=== PATIENT | male | born 2000 | race Caucasian/White ===

== ENCOUNTER 2019-11-11 05:17 | Emergency (ER) | payer OTHER, BC, SELFPAY ==
[2019-11-11 05:21] VITALS: BP 127/78; PULSE 109; RESP 16; TEMP 37; O2SAT 95; BMI 25.1
--- NOTE | 2019-11-11 05:47 | W.ED.NAVMDI ---
HPI - Nausea/Vomiting/Diarrhea General: Chief complaint: Nausea/Vomiting/Diarrhea Stated complaint: nausea Time Seen by Provider: 11/11/19 05:46 History of Present Illness: HPI Narrative: 18 yo female presents with N/V, denies hematochezia melena hematemesis or coffee-ground emesis. Denies dysuria urgency or frequency. No fevers. Associated nausea: Yes Associated symtoms: Reports nausea; Denies bloating, chest pain, dysuria, fatigue or malaise Review of Systems Const: Denies: fever, chills, body aches, change in appetite, fatigue or malaise ENMT: Denies: throat pain, ear pain, nasal discharge or nasal congestion Card: Denies: chest pain, edema, shortness of breath on exertion or shortness of breath when lying down Resp: Denies: shortness of breath, productive cough or non-productive cough GI: Reports: nausea and vomiting; Denies: abdominal pain, vomiting blood, coffee grounds in vomit, diarrhea, constipation, bloating, blood in stool or black tarry stool : Denies: flank pain, painful urination, urinary frequency or urinary urgency Skin/Breast: Denies: rash or itching PFSH ED PFSH: Social History Smoking and tobacco status: never smoked Physical Exam Const: COMMON NORMALS: no apparent distress GENERAL APPEARANCE: cooperative and comfortable ORIENTATION/CONSCIOUSNESS: Yes awake, Yes oriented to person, Yes oriented to place and Yes oriented to time HENMT: COMMON NORMALS: normocephalic, head/scalp atraumatic, hearing grossly normal bilaterally, external ears normal, EAC's normal, TM's normal bilaterally, nasal mucous membranes and turbinates normal, moist oral mucous membranes and oropharynx normal HEAD & SCALP: normocephalic and atraumatic NOSE: nasal mucous membranes and turbinates normal EXTERNAL EAR: Yes external ears normal EXTERNAL AUDITORY CANAL: EAC's normal TYMPANIC MEMBRANE: TM's normal bilaterally Eye: COMMON NORMALS: PERRL, EOMs intact bilaterally, conjunctivae normal and no scleral icterus CONJUNCTIVA: Yes conjunctivae normal PUPIL: Yes PERRL Neck/C-Spine: COMMON NORMALS: full ROM, no lymphadenopathy, supple and no JVD Lymph: LYMPHATIC: no lymphadenopathy noted and no lymphedema noted Resp: COMMON NORMALS: normal respiratory effort, no retractions, no use of accessory muscles and clear to auscultation bilaterally AUSCULTATION: clear to auscultation bilaterally Cardio: COMMON NORMALS: no JVD, regular rate, regular rhythm and no murmurs RATE: regular rate RHYTHM: regular rhythm GI: COMMON NORMALS: soft to palpation and no hepatosplenomegaly AUSCULTATION: Yes normoactive bowel sounds PALPATION: Yes soft, No tender, No guarding and Yes no hepatosplenomegaly Extremity: COMMON NORMALS: normal to inspection, normal capillary refill, no clubbing, cyanosis or edema, no calf tenderness and no pedal edema Neuro: SENSORIUM/ORIENTATION: Yes oriented to person, Yes oriented to place and Yes oriented to time Skin: COMMON NORMALS: no rashes or lesions noted GENERAL SKIN EXAM: no rashes or lesions noted Course ED course: Influenza is positive remainder the labs are essentially normal mild prerenal dehydration. We will go ahead and give her IV fluids discharge home gave her Zofran to use PRN discussed Tamiflu and patient decided against. Return if has worsening problems. Vital Signs: Vital signs: Vital Signs Temperature 98.6 F 11/11/19 05:21 Pulse Rate 109 H 11/11/19 05:21 Respiratory Rate 16 11/11/19 08:18 Blood Pressure 127/78 11/11/19 05:21 Pulse Oximetry 95 11/11/19 05:21 MDM - Nausea/Vomiting/Diarrhea Lab Data: Labs: Lab Results 11/11/19 11/11/19 11/11/19 Range/Units 05:41 05:41 06:08 WBC 8.6 (4.5-13.0) 10^3/ uL RBC 5.52 H (4.1-5.3) 10^6/u L Hgb 16.0 (11.7-16.6) g/dL Hct 47.9 (42.0-52.0) % MCV 86.8 (80-94) fL MCH 29.0 (28.0-34.0) pg MCHC 33.4 (30.0-36.0) g/dL RDW 12.2 (12.1-15.1) % Plt Count 229 (130-400) 10^3/c mm MPV 9.6 (7.4-10.4) fL Neut % (Auto) 84.6 % Lymph % (Auto) 7.8 % [place] % (Auto) 6.2 % Eos % (Auto) 1.0 % Baso % (Auto) 0.1 % Neut # (Auto) 7.3 (1.8-8.0) 10^3/u L Lymph # (Auto) 0.7 L (1.5-6.5) 10^3/u L [place] # (Auto) 0.5 (0.2-0.9) 10^3/u L Eos # (Auto) 0.1 (0.0-0.8) 10^3/u L Baso # (Auto) 0.0 (0.0-0.1) 10^3/u L Nucleated RBC % (a uto) 0 % Nucleated RBCs # 0.0 /100WBC Sodium 139 (136-145) mmol/L Potassium 4.8 (3.5-5.1) mmol/L Chloride 102 (98-107) mmol/L Carbon Dioxide 26 (22-29) mmol/L Anion Gap 15.8 (5-19) BUN 21 H (6-20) mg/dL Creatinine 1.0 (0.7-1.2) mg/dL GFR Calculation 95.3 (90-130) mL/min Glucose 136 H (65-115) mg/dL Calculated Osmolal ity 287 (285-295) mOsm/k g Calcium 9.4 (8.5-10.5) mg/dL Total Bilirubin 0.9 (0.15-1.2) mg/dL AST 25 (0-40) U/L ALT 42 H (0-41) U/L Alkaline Phosphata se 76 (40-130) IU/L Total Protein 7.5 (6.6-8.7) g/dL Albumin 4.6 (3.5-5.2) g/dL Globulin 2.9 (1.3-4.6) g/dL Lipase 25 (13-60) U/L Urine Color Yellow (Yellow) Urine Appearance Clear (CLEAR) Urine pH 6 (5-7) Ur Specific Gravit y 1.010 (1.005-1.030) Urine Protein Neg (Negative) Urine Glucose (UA) Norm (Normal) Urine Ketones 1+ H (Negative) Urine Blood Neg (Negative) Urine Nitrate Negative (Negative) Urine Bilirubin Neg (NEGATIVE) Urine Urobilinogen 1 H (Negative) mg/dL Ur Leukocyte Gloria ase Negative (Negative) Discharge Plan Discharge Patient Disposition: Home, Self-Care Clinical Impression: Influenza, Dehydration Condition: Stable Prescriptions: New Zofran 4 mg tablet 4 mg PO Q6H PRN (Reason: nausea and vomiting) Qty: 20 RF: 0 Discharge Orders: Discharge Order (Routine); Ordered 11/11/19 Ordered By: Trae Hart Referrals: Rodri Vasquez, SPREADING MACHINE OPERATOR [Family Provider] - Discharge Diet: Clear Liquid Discharge Activity: Increase activity as tolerated Discharge Date/Time: 11/11/19 08:18 Coding Level of Care Code ED Customer Service Manager for Payal Guzman
[2019-11-11 05:54] LABS: Basophils % 0.1 %; Eosinophils # 0.1 10^3/uL (0.0-0.8); Hematocrit 47.9 % (42.0-52.0); Lymphocytes # 0.7 10^3/uL (1.5-6.5); Lymphocytes % 7.8 %; Mean Corpuscular HGB Conc 33.4 g/dL (30.0-36.0); Mean Corpuscular Volume 86.8 fL (80-94); Mean Platelet Volume 9.6 fL (7.4-10.4); Monocytes # 0.5 10^3/uL (0.2-0.9); Monocytes % 6.2 %; Neutrophils # 7.3 10^3/uL (1.8-8.0); Neutrophils % 84.6 %; Nucleated Red Blood Cells % 0 %; Platelet Count 229 10^3/cmm (130-400); Red Blood Count 5.52 10^6/uL (4.1-5.3); Red Cell Distribution Width 12.2 % (12.1-15.1); White Blood Count 8.6 10^3/uL (4.5-13.0)
[2019-11-11] MEDS: ondansetron 2 mg/ML SDV 2 mL 4 MG IVP ×2 (05:58→07:52)
[2019-11-11] MEDS: sodium chloride 0.9% 1,000 ML 999 ML IV ×2 (05:58→07:51)
[2019-11-11 06:10] LABS: Alanine Aminotransferase 42 U/L (0-41); Albumin Level 4.6 g/dL (3.5-5.2); Alkaline Phosphatase 76 IU/L (40-130); Anion Gap 15.8 (5-19); Aspartate Amino Transferase 25 U/L (0-40); Blood Urea Nitrogen 21 mg/dL (6-20); Calcium 9.4 mg/dL (8.5-10.5); Carbon Dioxide 26 mmol/L (22-29); Chloride 102 mmol/L (98-107); Creatinine Clr Calc Pharmacy 129.7313; Globulin 2.9 g/dL (1.3-4.6); Glomerular Filtration Rate 95.3 mL/min (90-130); Glucose 136 mg/dL (65-115); Lipase 25 U/L (13-60); Osmolality Calculated 287 mOsm/kg (285-295); Potassium 4.8 mmol/L (3.5-5.1); Sodium 139 mmol/L (136-145); Total Bilirubin 0.9 mg/dL (0.15-1.2); Total Protein 7.5 g/dL (6.6-8.7)
[2019-11-11 06:15] LABS: Add Urine Microscopic? NO
[2019-11-11 06:31] LABS: Urine Appearance Clear (CLEAR); Urine Color Yellow (Yellow); pH Urine 6 (5-7)
[2019-11-11 06:32] LABS: Bilirubin Urine Neg (NEGATIVE); Blood Urine Neg (Negative); Glucose Urine UA Norm (Normal); Ketones Urine 1+ (Negative); Leukocyte Esterase Urine Negative (Negative); Nitrate Urine Negative (Negative); Protein Urine Neg (Negative); Urobilinogen Urine 1 mg/dL (Negative)
[2019-11-11 07:00] VITALS: RESP 17
[2019-11-11 08:00] VITALS: RESP 16
[2019-11-11 08:18] VITALS: RESP 16
== END 2019-11-11 08:18 | disposition home or self-care (01) ==
PROVIDERS: Emergency Medicine; Emergency Provider Family Medicine; Family Provider Nurse Practitioner Family
DX: J11.1 Influenza due to unidentified influenza virus with other respiratory manifestations (principal); E86.0 Dehydration
CPT/HCPCS: 12345; 80053; 81003; 83690; 85025; 96360; 96361; 96365; 96366; 96374; 96375; 99283; A9270; J2405; J7030

== ENCOUNTER 2021-10-16 13:08 | Emergency (ER) | payer OTHER, SELFPAY ==
[2021-10-16 14:28] VITALS: BP 100/69; PULSE 76; RESP 14; TEMP 36.8; O2SAT 98; BMI 27.8
[2021-10-16] MEDS: rabies vaccine 2.5 unit SDV IM (16:09)
--- NOTE | 2021-10-16 16:17 | W.ED.GENADLT ---
HPI - General Adult General: Chief complaint: General Medical Stated complaint: Wants a rabies shot Time Seen by Provider: 10/16/21 15:59 History of Present Illness: Patient is a 20-year-old male comes to the ED with possible exposure to rabies. 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 They ended up having to put the dogs down and some blood from one of the dogs got in patient's eye. They had no vaccination history on dogs. He denies any bites or any other injuries. He has no other symptoms. Associated symptoms: Deny chest pain, dyspnea, headache(s), nausea, rash, palpitations or vomiting Review of Systems Const: Denies: fever(s), chills or fatigue Eyes: Denies: change in vision or eye discomfort ENMT: Denies: throat pain, odynophagia, nasal discharge or nasal congestion Card: Denies: chest pain, palpitations, edema, swelling of feet/ankles, dyspnea on exertion or orthopnea Resp: Denies: dyspnea, productive cough or non-productive cough GI: Denies: abdominal pain, nausea, vomiting, diarrhea, constipation or hematochezia : Denies: flank pain, difficulty urinating, dysuria or hematuria Musc: Denies: neck pain, back pain or extremity swelling Skin/Breast: Denies: rash or new lesions Neuro: Denies: headache(s), numbness in extremities or weakness in extremities [facility] ED PFSH: Medical History No pertinent family history Surgical History No pertinent past surgical history Social History Smoking and tobacco status: never smoked Physical Exam Const: COMMON NORMALS: no acute distress, patient oriented x3, healthy appearing and alert GENERAL APPEARANCE: cooperative and comfortable HENMT: COMMON NORMALS: normocephalic HEAD & SCALP: normocephalic MOUTH: Normal oral and palatal mucosa present THROAT: posterior oropharynx normal and uvula midline Neck/C-Spine: COMMON NORMALS: supple GENERAL: Yes normal visual inspection Resp: COMMON NORMALS: normal respiratory effort, No retractions, No use of accessory muscles and clear to auscultation bilaterally AUSCULTATION: clear to auscultation bilaterally Cardio: COMMON NORMALS: regular rate, regular rhythm, S1 normal heart sound present, S2 normal heart sound present, No gallops present (Cardio), No clicks present (Cardio), No murmurs present (Cardio) and Peripheral pulses 2+ throughout RATE: regular rate RHYTHM: regular rhythm HEART SOUNDS: S1 normal heart sound present and S2 normal heart sound present PERIPHERAL PULSES: Peripheral pulses 2+ throughout GI: COMMON NORMALS: Normal to inspection, nondistended, normoactive bowel sounds present, Soft to palpation, non-tender and no masses PALPATION: Yes Soft to palpation : COMMON NORMALS: Yes no CVA tenderness BLADDER/KIDNEY EXAM: Yes no CVA tenderness Back/Pelvis: COMMON NORMALS: no CVA tenderness Extremity: COMMON NORMALS: normal to inspection Neuro: COMMON NORMALS: patient oriented x3 and moves all extremities SENSORIUM/ORIENTATION: Yes alert Skin: COMMON NORMALS: no rashes or lesions noted GENERAL SKIN EXAM: no rashes or lesions noted and dry skin Course Vital Signs: Vital signs: Vital Signs Temperature 98.2 F 10/16/21 14:28 Pulse Rate 76 10/16/21 14:28 Respiratory Rate 14 10/16/21 14:28 Blood Pressure 100/69 10/16/21 14:28 Pulse Oximetry 98 10/16/21 14:28 MDM - General Adult Medical Decision Making Patient is a 20-year-old male comes to the ED in need of postexposure prophylaxis for rabies. 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 No vaccination history on dogs. Denies any bite starr or any other injuries from dogs. Vital stable. Patient appears in no acute distress or pain. The rest of exam was benign. Patient was given rabies immune globulin and rabies vaccine here in the ED. He was instructed when to return to the ED to get the rest of his rabies vaccination series. Patient understood and agreed with plan. Discharge Plan Discharge Patient Disposition: Home Clinical Impression: Need for post exposure prophylaxis for rabies Condition: Stable Prescriptions: No Action Zofran 4 mg tablet 4 mg PO Q6H PRN (Reason: nausea and vomiting) Qty: 20 0RF Discharge Orders: Discharge ED (Routine); Ordered 10/16/21 Ordered By: Adrian Marianne Discharge Diet: Regular Discharge Activity: Resume usual activity Patient Instructions: Rabies Vaccine (By injection), Rabies Immune Globulin (By injection), Rabies (ED) Activity Restrictions/Additional Instructions: Follow-up with medical provider as directed. return to the ED for rabies vaccination dose on day 3 (10/19), 7 (10/23) and 14 (10/30). Return to the ER or your medical provider if condition worsens. Please read and understand discharge instructions. If any questions, please ask. Coding Level of Care Code ED Fixing Carpenter for Payal Fwd Exam Comprehensive
== END 2021-10-16 16:49 | disposition home or self-care (01) ==
PROVIDERS: Emergency Provider Physician Assistant
DX: Z20.3 Contact with and (suspected) exposure to rabies (principal); Z29.14 Encounter for prophylactic rabies immune globulin; Z23 Encounter for immunization; Y99.0 Civilian activity done for income or pay
CPT/HCPCS: 90375; 90471; 90675; 96372; 99283

== ENCOUNTER 2022-04-02 21:08 | Emergency (ER) | payer OTHER, BC, SELFPAY ==
[2022-04-02 21:23] VITALS: BP 137/85; PULSE 101; RESP 22; TEMP 36.3; O2SAT 97; BMI 27.8
--- NOTE | 2022-04-02 21:29 | CTR_ITS ---
PROCEDURE INFORMATION: Exam: CT Abdomen And Pelvis With Contrast Exam date and time: 04/02/2022 10:48 PM Age: 21 years old Clinical indication: Abdominal pain; Prior surgery; Surgery type: Gb; Patient HX: C/O severe periumbilical pain. ; Additional info: Abd pain TECHNIQUE: Imaging protocol: Computed tomography of the abdomen and pelvis with contrast. Radiation optimization: All CT scans at this facility use at least one of these dose optimization techniques: automated exposure control; mA and/or kV adjustment per patient size (includes targeted exams where dose is matched to clinical indication); or iterative reconstruction. Contrast material: OMNI 350; Contrast volume: 80 ml; Contrast route: INTRAVENOUS (IV); COMPARISON: CR (ABDOMEN, ) 04/02/2022 9:56 PM RADIATION DOSE METRICS: Total DLP (mGy-cm): 577.47 FINDINGS: Liver: Normal. No mass. Gallbladder and bile ducts: Cholecystectomy. The bile ducts are normal. Pancreas: Normal. No ductal dilation. Spleen: Normal. No splenomegaly. Adrenal glands: Normal. No mass. Kidneys and ureters: Hypodensity in the left kidney is too small to characterize but is most likely a cyst. No follow-up imaging is recommended. The kidneys are otherwise unremarkable. No calculus or hydronephrosis. Stomach and bowel: Mildly prominent fluid-filled loops of small bowel in the mid and lower abdomen measure up to 2.7 cm. No visible wall thickening. The stomach and colon are unremarkable. Appendix: The appendix is visualized and is normal. Intraperitoneal space: Unremarkable. No free air. No significant fluid collection. Vasculature: Unremarkable. No abdominal aortic aneurysm. Lymph nodes: Prominent mesenteric lymph nodes are most likely reactive. Urinary bladder: Unremarkable as visualized. Reproductive: Unremarkable as visualized. Bones/joints: Unremarkable. No acute fracture. Soft tissues: Unremarkable. CT/CT abdomen pelvis w con* [id number] IMPRESSION: 1. Mesenteric adenitis. 2. Mildly prominent fluid-filled loops of small bowel could represent mild enteritis or ileus. COMMENTS: Consistent with the [employer]'s Incidental Findings Committee white paper (J Am Alpesh Radiol 2018): Any incidental renal lesion less than 1 cm or classified as too small to characterize, or any incidental cystic renal lesion characterized as simple-appearing, is likely benign. No follow-up imaging is recommended for these lesions per consensus recommendations based on imaging criteria.
--- NOTE | 2022-04-02 21:44 | W.ED.GENADLT ---
Documented by User: Adeel Corral MD 04/06/22 11:55 HPI - General Adult General: Chief complaint: Abdominal Pain Stated complaint: ABD PAIN Time Seen by Provider: 04/02/22 21:25 History of Present Illness: Patient is a 21-year-old male with history of cholecystectomy presenting to the emergency room for evaluation of diffuse abdominal pain since 430 this afternoon. Patient tells me that he was at home and suddenly noticed bloating and this the pain has significantly worsened since then. Patient denies any nausea/vomiting, diarrhea, fever/chills, cough, runny nose sore throat. Patient denies any melena or hematochezia. No complaints at this time. No prior history of renal colic. Patient denies any chest pain, short of breath, generalized weakness cough or sore throat Onset:4:30pm Duration:ongoing Location:home Severity:moderate Associated symptoms: Deny chest pain, dyspnea, nausea, rash, palpitations or vomiting Review of Systems Const: Denies: fever(s) or chills Eyes: Denies: change in vision ENMT: Denies: mouth pain Card: Denies: chest pain or palpitations Resp: Denies: dyspnea or non-productive cough GI: Reports: abdominal pain (+diffuse abd pain); Denies: nausea, vomiting or diarrhea : Denies: dysuria Musc: Denies: extremity pain Skin/Breast: Denies: rash or new lesions Neuro: Denies: weakness in extremities Psych: Reports: other (Normal mood) Kyle/Lymph: Denies: easy bruising PFS ED PFSH: Surgical History No pertinent past surgical history S/P cholecystectomy Social History Smoking and tobacco status: never smoked Physical Exam Const: COMMON NORMALS: alert HENMT: COMMON NORMALS: atraumatic HEAD & SCALP: atraumatic MOUTH: moist mucous membranes not abnormal Eye: COMMON NORMALS: EOMs intact bilaterally and conjunctivae normal CONJUNCTIVA: Yes conjunctivae normal Neck/C-Spine: COMMON NORMALS: full ROM and supple Resp: COMMON NORMALS: normal respiratory effort and clear to auscultation bilaterally AUSCULTATION: clear to auscultation bilaterally Cardio: COMMON NORMALS: regular rate RATE: regular rate GI: COMMON NORMALS: Soft to palpation PALPATION: Yes Soft to palpation OTHER: +Moderate diffuse abd TTP. NO guarding rebound, guarding, rigidity. No CVA tenderness to percussion. Neg Gómez/Neg McBurney's point tenderness, no suprabupic tenderness to palpation. Extremity: COMMON NORMALS: full ROM Neuro: SENSORIUM/ORIENTATION: Yes alert MOTOR EXAM: No Abnormal motor strength present and Other motor observations present (no focal motor deficits) Psych: COMMON NORMALS: speech normal SPEECH: Yes normal speech MOOD & AFFECT: Yes euthymic mood Course Vital Signs: Vital signs: Vital Signs Temperature 97.3 F L 04/02/22 21:23 Pulse Rate 94 04/03/22 00:22 Respiratory Rate 18 04/03/22 00:22 Blood Pressure 141/84 04/03/22 00:22 Pulse Oximetry 94 04/03/22 00:22 Oxygen Delivery Me thod 04/02/22 23:05 MDM - General Adult Medical Decision Making 21-year-old male with history of cholecystectomy presenting to the emergency room with diffuse abdominal pain since 430 this afternoon. On physical exam, patient appears to be in moderate distress with diffuse tenderness palpation. No guarding or rebound tenderness. Initially in triage, patient was noted to be tachycardic, however heart rate improved without reassessment. Lab Data : 04/02/22 21:36 04/02/22 21:36 Radiology Impressions Abdomen/Pelvis CT 04/02/22 21:29 IMPRESSION: 1. Mesenteric adenitis. 2. Mildly prominent fluid-filled loops of small bowel could represent mild enteritis or ileus. COMMENTS: Consistent with the [employer]'s Incidental Findings Committee white paper (J Am Alpesh Radiol 2018): Any incidental renal lesion less than 1 cm or classified as too small to characterize, or any incidental cystic renal lesion characterized as simple-appearing, is likely benign. No follow-up imaging is recommended for these lesions per consensus recommendations based on imaging criteria. Chest X-Ray 04/02/22 21:53 Impression: Negative chest. KUB X-Ray 04/02/22 21:53 IMPRESSION: 1. Nonobstructive bowel gas pattern. Mild gaseous prominence of the small bowel could represent ileus or enteritis. Laboratory Results WBC 9.9 10^3/uL (4.0-10.0) 04/02/22 21:36 RBC 5.26 10^6/uL (4.1-5.3) 04/02/22 21:36 Hgb 15.5 g/dL (11.7-16.6) 04/02/22 21:36 Hct 44.5 % (42.0-52.0) 04/02/22 21:36 MCV 84.6 fl (80-94) 04/02/22 21:36 MCH 29.5 pg (28.0-34.0) 04/02/22 21:36 MCHC 34.8 g/dL (30.0-36.0) 04/02/22 21:36 RDW 12.1 % (12.1-15.1) 04/02/22 21:36 Plt Count 271 10^3/cmm (130-400) 04/02/22 21:36 MPV 9.7 fL (7.4-10.4) 04/02/22 21:36 Neut % (Auto) 75.6 % 04/02/22 21:36 Lymph % (Auto) 15.0 % 04/02/22 21:36 [place] % (Auto) 7.1 % 04/02/22 21:36 Eos % (Auto) 1.5 % 04/02/22 21:36 Baso % (Auto) 0.4 % 04/02/22 21:36 Neut # (Auto) 7.51 10^3/uL (1.8-7.7) 04/02/22 21:36 Lymph # (Auto) 1.5 10^3/uL (0.8-4.8) 04/02/22 21:36 [place] # (Auto) 0.7 10^3/uL (0.2-0.9) 04/02/22 21:36 Eos # (Auto) 0.2 10^3/uL (0.0-0.8) 04/02/22 21:36 Baso # (Auto) 0.0 10^3/uL (0.0-0.1) 04/02/22 21:36 Nucleated RBC % (auto) 0 % 04/02/22 21:36 Nucleated RBCs # 0.0 /100WBC 04/02/22 21:36 Sodium 139 mmol/L (136-145) 04/02/22 21:36 Potassium 4.0 mmol/L (3.5-5.1) 04/02/22 21:36 Chloride 102 mmol/L (98-107) 04/02/22 21:36 Carbon Dioxide 25 mmol/L (22-29) 04/02/22 21:36 Anion Gap 16.0 (5-19) 04/02/22 21:36 BUN 15 mg/dL (6-20) 04/02/22 21:36 Creatinine 1.1 mg/dL (0.7-1.2) 04/02/22 21:36 GFR Calculation 83.0 mL/min (90-130) L 04/02/22 21:36 Glucose 111 mg/dL (65-115) 04/02/22 21:36 Calculated Osmolality 290 mOsm/kg (285-295) 04/02/22 21:36 Lactate 2.1 mmol/L (0.5-2.2) 04/02/22 21:36 Calcium 9.4 mg/dL (8.5-10.5) 04/02/22 21:36 Total Bilirubin 0.5 mg/dL (0.15-1.2) 04/02/22 21:36 AST 18 U/L (0-40) 04/02/22 21:36 ALT 23 U/L (0-41) 04/02/22 21:36 Alkaline Phosphatase 69 IU/L (40-130) 04/02/22 21:36 Total Protein 6.9 g/dL (6.6-8.7) 04/02/22 21:36 Albumin 4.4 g/dL (3.5-5.2) 04/02/22 21:36 Globulin 2.5 g/dL (1.3-4.6) 04/02/22 21:36 Lipase 29 U/L (13-60) 04/02/22 21:36 Urine Color Yellow (Yellow) 04/02/22 22:02 Urine Appearance Clear (CLEAR) 04/02/22 22:02 Urine pH 7 (5-7) 04/02/22 22:02 Ur Specific [place] 1.010 (1.005-1.030) 04/02/22 22:02 Urine Protein Neg (Negative) 04/02/22 22:02 Urine Glucose (UA) Norm (Normal) 04/02/22 22:02 Urine Ketones 1+ (Negative) H 04/02/22 22:02 Urine Blood Neg (Negative) 04/02/22 22:02 Urine Nitrate Negative (Negative) 04/02/22 22:02 Urine Bilirubin Neg (Negative) 04/02/22 22:02 Urine Urobilinogen Norm mg/dL (Negative) 04/02/22 22:02 Ur Leukocyte Esterase Negative (Negative) 04/02/22 22:02 Discharge Plan Discharge Patient Disposition: Home Clinical Impression: Abdominal pain, Mesenteric adenitis Condition: Stable Prescriptions: New hydrocodone-acetaminophen 5-325 mg tablet 1 tab PO Q6H PRN (Reason: pain) Qty: 14 0RF ondansetron 4 mg tablet,disintegrating 4 mg PO Q6H PRN (Reason: nausea and vomiting) Qty: 14 0RF Discharge Orders: Discharge ED (Routine); Ordered 04/03/22 Ordered By: Elva Mtz Discharge Diet: Advance as tolerated Discharge Activity: Resume usual activity Patient Instructions: Abdominal Pain (ED), Opioid Safety Coding Level of Care Code ED Can Closing Machine Operator for Chg Fwd Exam Comprehensive Documented by User: Elva Mtz MD 04/03/22 00:09 HPI - General Adult General: Chief complaint: Abdominal Pain Stated complaint: ABD PAIN Time Seen by Provider: 04/02/22 21:25 [facility] ED PFSH: Surgical History No pertinent past surgical history S/P cholecystectomy Social History Smoking and tobacco status: never smoked Course Vital Signs: Vital signs: Vital Signs Temperature 97.3 F L 04/02/22 21:23 Pulse Rate 94 04/03/22 00:22 Respiratory Rate 18 04/03/22 00:22 Blood Pressure 141/84 04/03/22 00:22 Pulse Oximetry 94 04/03/22 00:22 Oxygen Delivery Me thod 04/02/22 23:05 MDM - General Adult Medical Decision Making 21-year-old male with history of cholecystectomy presenting to the emergency room with diffuse abdominal pain since 430 this afternoon. On physical exam, patient appears to be in moderate distress with diffuse tenderness palpation. No guarding or rebound tenderness. Initially in triage, patient was noted to be tachycardic, however heart rate improved without reassessment. Patient's CT scan here shows mesenteric adenitis no signs appendicitis he feels much improved exam at discharge is benign we will place him on pain meds he is to follow-up with PCP and return if worsening he understands agrees to plan. Lab Data : 04/02/22 21:36 04/02/22 21:36 Radiology Impressions Abdomen/Pelvis CT 04/02/22 21:29 IMPRESSION: 1. Mesenteric adenitis. 2. Mildly prominent fluid-filled loops of small bowel could represent mild enteritis or ileus. COMMENTS: Consistent with the [employer]'s Incidental Findings Committee white paper (J Am Alpesh Radiol 2018): Any incidental renal lesion less than 1 cm or classified as too small to characterize, or any incidental cystic renal lesion characterized as simple-appearing, is likely benign. No follow-up imaging is recommended for these lesions per consensus recommendations based on imaging criteria. Chest X-Ray 04/02/22 21:53 Impression: Negative chest. KUB X-Ray 04/02/22 21:53 IMPRESSION: 1. Nonobstructive bowel gas pattern. Mild gaseous prominence of the small bowel could represent ileus or enteritis. Laboratory Results WBC 9.9 10^3/uL (4.0-10.0) 04/02/22 21:36 RBC 5.26 10^6/uL (4.1-5.3) 04/02/22 21:36 Hgb 15.5 g/dL (11.7-16.6) 04/02/22 21:36 Hct 44.5 % (42.0-52.0) 04/02/22 21:36 MCV 84.6 fl (80-94) 04/02/22 21:36 MCH 29.5 pg (28.0-34.0) 04/02/22 21:36 MCHC 34.8 g/dL (30.0-36.0) 04/02/22 21:36 RDW 12.1 % (12.1-15.1) 04/02/22 21:36 Plt Count 271 10^3/cmm (130-400) 04/02/22 21:36 MPV 9.7 fL (7.4-10.4) 04/02/22 21:36 Neut % (Auto) 75.6 % 04/02/22 21:36 Lymph % (Auto) 15.0 % 04/02/22 21:36 [place] % (Auto) 7.1 % 04/02/22 21:36 Eos % (Auto) 1.5 % 04/02/22 21:36 Baso % (Auto) 0.4 % 04/02/22 21:36 Neut # (Auto) 7.51 10^3/uL (1.8-7.7) 04/02/22 21:36 Lymph # (Auto) 1.5 10^3/uL (0.8-4.8) 04/02/22 21:36 [place] # (Auto) 0.7 10^3/uL (0.2-0.9) 04/02/22 21:36 Eos # (Auto) 0.2 10^3/uL (0.0-0.8) 04/02/22 21:36 Baso # (Auto) 0.0 10^3/uL (0.0-0.1) 04/02/22 21:36 Nucleated RBC % (auto) 0 % 04/02/22 21:36 Nucleated RBCs # 0.0 /100WBC 04/02/22 21:36 Sodium 139 mmol/L (136-145) 04/02/22 21:36 Potassium 4.0 mmol/L (3.5-5.1) 04/02/22 21:36 Chloride 102 mmol/L (98-107) 04/02/22 21:36 Carbon Dioxide 25 mmol/L (22-29) 04/02/22 21:36 Anion Gap 16.0 (5-19) 04/02/22 21:36 BUN 15 mg/dL (6-20) 04/02/22 21:36 Creatinine 1.1 mg/dL (0.7-1.2) 04/02/22 21:36 GFR Calculation 83.0 mL/min (90-130) L 04/02/22 21:36 Glucose 111 mg/dL (65-115) 04/02/22 21:36 Calculated Osmolality 290 mOsm/kg (285-295) 04/02/22 21:36 Lactate 2.1 mmol/L (0.5-2.2) 04/02/22 21:36 Calcium 9.4 mg/dL (8.5-10.5) 04/02/22 21:36 Total Bilirubin 0.5 mg/dL (0.15-1.2) 04/02/22 21:36 AST 18 U/L (0-40) 04/02/22 21:36 ALT 23 U/L (0-41) 04/02/22 21:36 Alkaline Phosphatase 69 IU/L (40-130) 04/02/22 21:36 Total Protein 6.9 g/dL (6.6-8.7) 04/02/22 21:36 Albumin 4.4 g/dL (3.5-5.2) 04/02/22 21:36 Globulin 2.5 g/dL (1.3-4.6) 04/02/22 21:36 Lipase 29 U/L (13-60) 04/02/22 21:36 Urine Color Yellow (Yellow) 04/02/22 22:02 Urine Appearance Clear (CLEAR) 04/02/22 22:02 Urine pH 7 (5-7) 04/02/22 22:02 Ur Specific [place] 1.010 (1.005-1.030) 04/02/22 22:02 Urine Protein Neg (Negative) 04/02/22 22:02 Urine Glucose (UA) Norm (Normal) 04/02/22 22:02 Urine Ketones 1+ (Negative) H 04/02/22 22:02 Urine Blood Neg (Negative) 04/02/22 22:02 Urine Nitrate Negative (Negative) 04/02/22 22:02 Urine Bilirubin Neg (Negative) 04/02/22 22:02 Urine Urobilinogen Norm mg/dL (Negative) 04/02/22 22:02 Ur Leukocyte Esterase Negative (Negative) 04/02/22 22:02 Discharge Plan Discharge Patient Disposition: Home Clinical Impression: Abdominal pain, Mesenteric adenitis Condition: Stable Prescriptions: New hydrocodone-acetaminophen 5-325 mg tablet 1 tab PO Q6H PRN (Reason: pain) Qty: 14 0RF ondansetron 4 mg tablet,disintegrating 4 mg PO Q6H PRN (Reason: nausea and vomiting) Qty: 14 0RF Discharge Orders: Discharge ED (Routine); Ordered 04/03/22 Ordered By: Elva Mtz Discharge Diet: Advance as tolerated Discharge Activity: Resume usual activity Patient Instructions: Abdominal Pain (ED), Opioid Safety Coding Level of Care Code ED Can Closing Machine Operator for Taryng Fwd Exam Comprehensive
[2022-04-02 21:47] LABS: Basophils % 0.4 %; Eosinophils # 0.2 10^3/uL (0.0-0.8); Eosinophils % 1.5 %; Hematocrit 44.5 % (42.0-52.0); Hemoglobin 15.5 g/dL (11.7-16.6); Lymphocytes # 1.5 10^3/uL (0.8-4.8); Mean Corpuscular HGB Conc 34.8 g/dL (30.0-36.0); Mean Corpuscular Hemoglobin 29.5 pg (28.0-34.0); Mean Corpuscular Volume 84.6 fl (80-94); Mean Platelet Volume 9.7 fL (7.4-10.4); Monocytes # 0.7 10^3/uL (0.2-0.9); Monocytes % 7.1 %; Neutrophils # 7.51 10^3/uL (1.8-7.7); Neutrophils % 75.6 %; Nucleated Red Blood Cells % 0 %; Platelet Count 271 10^3/cmm (130-400); Red Blood Count 5.26 10^6/uL (4.1-5.3); Red Cell Distribution Width 12.1 % (12.1-15.1); White Blood Count 9.9 10^3/uL (4.0-10.0)
--- NOTE | 2022-04-02 21:53 | XR_ITS ---
WS: [id number] Portable AP upright chest, 04/02/2022 Clinical Data: abd pain, please upright Comparison: None. Findings: No nodules, masses or effusions are seen. The heart is normal. The pulmonary vascularity is not increased. No pneumonia or pneumothorax is seen. XR/XR chest 1V portable [id number] Impression: Negative chest.
--- NOTE | 2022-04-02 21:53 | XRR_ITS ---
PROCEDURE INFORMATION: Exam: XR Abdomen Exam date and time: 04/02/2022 9:56 PM Age: 21 years old Clinical indication: Abdominal pain; Additional info: Abd pain, please upright TECHNIQUE: Imaging protocol: Radiologic exam of the abdomen. Views: Frontal supine view of the abdomen. 1 View. COMPARISON: No relevant prior studies available. FINDINGS: Lungs: The lung bases are clear. Gastrointestinal tract: Multiple loops of prominent gas-filled small bowel in the left abdomen measuring up to 2.9 cm. Scattered gas and stool in the normal caliber colon. Intraperitoneal space: No pneumoperitoneum. Organs: Cholecystectomy clips. Bones/joints: Unremarkable. XR/XR KUB portable [id number] IMPRESSION: 1. Nonobstructive bowel gas pattern. Mild gaseous prominence of the small bowel could represent ileus or enteritis.
[2022-04-02 21:59] VITALS: RESP 18; O2SAT 100
[2022-04-02] MEDS: HYDROmorphone 1 mg/mL INJ 1 mL IVP (21:59)
[2022-04-02] MEDS: sodium chloride 0.9% 500 ML IV (21:59)
[2022-04-02 22:14] LABS: Alanine Aminotransferase 23 U/L (0-41); Albumin Level 4.4 g/dL (3.5-5.2); Alkaline Phosphatase 69 IU/L (40-130); Aspartate Amino Transferase 18 U/L (0-40); Blood Urea Nitrogen 15 mg/dL (6-20); Calcium 9.4 mg/dL (8.5-10.5); Carbon Dioxide 25 mmol/L (22-29); Chloride 102 mmol/L (98-107); Globulin 2.5 g/dL (1.3-4.6); Glucose 111 mg/dL (65-115); Lipase 29 U/L (13-60); Osmolality Calculated 290 mOsm/kg (285-295); Sodium 139 mmol/L (136-145); Total Bilirubin 0.5 mg/dL (0.15-1.2); Total Protein 6.9 g/dL (6.6-8.7)
[2022-04-02 22:27] LABS: Add Urine Microscopic? NO; Charge for UA Resulting for Rev
[2022-04-02 22:37] LABS: Bilirubin Urine Neg (Negative); Blood Urine Neg (Negative); Glucose Urine UA Norm (Normal); Ketones Urine 1+ (Negative); Leukocyte Esterase Urine Negative (Negative); Nitrate Urine Negative (Negative); Protein Urine Neg (Negative); Urine Appearance Clear (CLEAR); Urine Color Yellow (Yellow); Urobilinogen Urine Norm (Negative); pH Urine 7 (5-7)
[2022-04-02 22:41] LABS: Lactate (Lactic Acid level) 2.1 mmol/L (0.5-2.2)
[2022-04-02 22:47] VITALS: RESP 18; O2SAT 99
[2022-04-02] MEDS: morphine 4 mg/mL SDV 1 mL IVP (22:47)
[2022-04-02] MEDS: iohexol 350 mg/mL 100 mL Btl IV (22:49)
[2022-04-02 23:05] VITALS: BP 125/89; PULSE 105; RESP 18; O2SAT 100
[2022-04-03 00:22] VITALS: BP 141/84; PULSE 94; RESP 18; O2SAT 94
== END 2022-04-03 00:25 | disposition home or self-care (01) ==
PROVIDERS: Emergency Medicine; Emergency Provider Emergency Medicine
DX: I88.0 Nonspecific mesenteric lymphadenitis (principal)
CPT/HCPCS: 71045; 74018; 74177; 80053; 81003; 83605; 83690; 85025; 96361; 96374; 96375; 99285; J1170; J2270; J7040; Q9967

== ENCOUNTER 2022-10-10 10:37 | Emergency (ER) | payer OTHER, BC, SELFPAY ==
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
[2022-10-10 10:39] VITALS: BP 148/74; PULSE 95; RESP 16; TEMP 36.8; O2SAT 93
[2022-10-10 10:50] VITALS: BP 148/74; PULSE 108; RESP 19; O2SAT 98
[2022-10-10] MEDS: tetanus-dipt-pertussis 0.5 mL SDV IM (12:17)
[2022-10-10 12:24] LABS: Basophils % 0.5 %; Eosinophils # 0.1 10^3/uL (0.0-0.8); Hematocrit 48.2 % (42.0-52.0); Hemoglobin 16.1 g/dL (11.7-16.6); Lymphocytes # 1.3 10^3/uL (0.8-4.8); Lymphocytes % 15.6 %; Mean Corpuscular HGB Conc 33.4 g/dL (30.0-36.0); Mean Corpuscular Hemoglobin 28.7 pg (28.0-34.0); Mean Corpuscular Volume 85.9 fl (80-94); Mean Platelet Volume 9.5 fL (7.4-10.4); Monocytes # 0.6 10^3/uL (0.2-0.9); Monocytes % 7.6 %; Neutrophils # 6.09 10^3/uL (1.8-7.7); Neutrophils % 74.6 %; Nucleated Red Blood Cells % 0 %; Platelet Count 276 10^3/cmm (130-400); Red Blood Count 5.61 10^6/uL (4.1-5.3); Red Cell Distribution Width 12.1 % (12.1-15.1); White Blood Count 8.2 10^3/uL (4.0-10.0)
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
[2022-10-10 12:50] LABS: Alanine Aminotransferase 66 U/L (0-41); Albumin Level 4.6 g/dL (3.5-5.2); Alkaline Phosphatase 64 U/L (40-130); Anion Gap 13.2 (5-19); Aspartate Amino Transferase 50 U/L (0-40); Blood Urea Nitrogen 16 mg/dL (6-20); Calcium 9.9 mg/dL (8.5-10.5); Carbon Dioxide 27 mmol/L (22-29); Chloride 102 mmol/L (98-107); Globulin 2.3 g/dL (1.3-4.6); Glomerular Filtration Rate 92.6 mL/min (90-130); Glucose 100 mg/dL (65-115); Osmolality Calculated 287 mOsm/kg (285-295); Potassium 4.2 mmol/L (3.5-5.1); Sodium 138 mmol/L (136-145); Total Bilirubin 0.4 mg/dL (0.15-1.2); Total Protein 6.9 g/dL (6.6-8.7)
[2022-10-10 13:06] LABS: Add Urine Microscopic? NO; Charge for UA Resulting for Rev
[2022-10-10 13:13] LABS: Bilirubin Urine Neg (Negative); Blood Urine Neg (Negative); Glucose Urine UA Norm (Normal); Ketones Urine Negative (Negative); Leukocyte Esterase Urine Negative (Negative); Nitrate Urine Negative (Negative); Protein Urine Neg (Negative); Specific Gravity, Urine 1.005 (1.005-1.030); Urine Appearance Clear (CLEAR); Urine Color Yellow (Yellow); Urobilinogen Urine Norm (Negative); pH Urine 6 (5-7)
[2022-10-10 13:27] VITALS: PULSE 104; O2SAT 97
== END 2022-10-10 13:28 | disposition home or self-care (01) ==
PROVIDERS: Emergency Provider Family Medicine
DX: S80.212A Abrasion, left knee, initial encounter (principal); S80.211A Abrasion, right knee, initial encounter; S50.812A Abrasion of left forearm, initial encounter; V89.2XXA Person injured in unspecified motor-vehicle accident, traffic, initial encounter; Z23 Encounter for immunization
CPT/HCPCS: 36415; 72040; 73090; 73130; 73562; 80053; 81003; 85025; 90471; 90715; 99284